=== PATIENT | male | born 1955 | race Caucasian/White ===

== ENCOUNTER 2017-11-14 13:10 | Emergency (ER) | payer MEDICAID, OTHER ==
[~2017-11-14] VITALS: Ht 185.4 cm; Wt 93.0 kg
[~2017-11-14 13:10] MED LIST: BENZ0.5T14; RISPERDAL; VENL25TA2
[2017-11-14 16:00] VITALS: BP 149/75
== END 2017-11-14 17:00 | disposition home or self-care (01) ==
LOC: ER 13:10 → EDBD 13:10 → ER 17:00
DX: S82.62XA Displaced fracture of lateral malleolus of left fibula, initial encounter for closed fracture (principal); I10 Essential (primary) hypertension; F17.210 Nicotine dependence, cigarettes, uncomplicated; W19.XXXA Unspecified fall, initial encounter; Y93.55 Activity, bike riding; Y92.488 Other paved roadways as the place of occurrence of the external cause; Y99.8 Other external cause status
CPT/HCPCS: 29515; 73610

== ENCOUNTER 2017-11-14 21:59 | Emergency (ER) | payer MEDICAID ==
[~2017-11-14] VITALS: Ht 182.9 cm; Wt 93.4 kg
[2017-11-14 22:07] VITALS: BP 122/85
[2017-11-14] MEDS ORDERED: LET TOPICAL SOLN 5 ML TOP ONE (23:30)
== END 2017-11-15 01:17 | disposition home or self-care (01) ==
LOC: EDBD 21:59 → ER 22:01
DX: S82.62XA Displaced fracture of lateral malleolus of left fibula, initial encounter for closed fracture (principal); I10 Essential (primary) hypertension; F17.210 Nicotine dependence, cigarettes, uncomplicated; V87.8XXA Person injured in other specified noncollision transport accidents involving motor vehicle (traffic), initial encounter; Y93.55 Activity, bike riding; Y92.488 Other paved roadways as the place of occurrence of the external cause; Y99.8 Other external cause status
CPT/HCPCS: 73610

== ENCOUNTER 2017-11-27 14:45 | Emergency (ER) | payer MEDICAID ==
[~2017-11-27] VITALS: Ht 177.8 cm; Wt 81.6 kg
[2017-11-27] MEDS ORDERED: SODIUM CHLORIDE 0.9% 1,000 ML IV ONE (15:55)
[2017-11-27] MEDS ORDERED: MORPHINE SULFATE 4 MG/ML SYR/VIAL IV ONE (16:00)
[2017-11-27] MEDS ORDERED: PROMETHAZINE HCL 25 MG/ML 1ML IV ONE (16:00)
[2017-11-27 17:26] VITALS: BP 136/86
== END 2017-11-27 18:55 | disposition home or self-care (01) ==
LOC: ER 14:45 → EDBD 14:45 → ER 18:54
DX: S82.842A Displaced bimalleolar fracture of left lower leg, initial encounter for closed fracture (principal); F31.32 Bipolar disorder, current episode depressed, moderate; I10 Essential (primary) hypertension; F41.0 Panic disorder [episodic paroxysmal anxiety]; F17.210 Nicotine dependence, cigarettes, uncomplicated; X58.XXXA Exposure to other specified factors, initial encounter; Y93.89 Activity, other specified; Y92.89 Other specified places as the place of occurrence of the external cause; Y99.8 Other external cause status
CPT/HCPCS: 29515; 73610; 93005; 96361; 96374; 96375; 99285; J2270; J2550; J7030

== ENCOUNTER 2018-06-20 15:10 | Emergency (ER) | payer MEDICARE, MEDICAID ==
[~2018-06-20] VITALS: Ht 180.3 cm; Wt 86.2 kg
[2018-06-20 15:23] VITALS: BP 120/72
== END 2018-06-20 17:01 | disposition left against medical advice (07) ==
LOC: EDBD 15:10 → ER 15:10
DX: M25.551 Pain in right hip (principal); Z53.21 Procedure and treatment not carried out due to patient leaving prior to being seen by health care provider